=== PATIENT | male | born 2000 | race Two or more races ===

== ENCOUNTER 2024-06-27 18:50 | Emergency (ER) | payer OTHER, MEDICAID ==
[~2024-06-27] VITALS: Ht 177.8 cm; Wt 88.2 kg
[2024-06-27] MEDS: SODIUM CHLORIDE 0.9% 1,000 ML IV ONE (19:15)
[2024-06-27 19:54] LABS: Basophils # (auto) 0.2 10 ^3/uL (0-0.2); Basophils % (auto) 1.6 % (0.0-2.0); Eosinophils # (auto) 0.3 10 ^3/uL (0-0.8); Eosinophils % (auto) 2.8 % (0.0-7.0); Hematocrit 44.9 % (41.0-53.0); Hemoglobin 15.9 g/dL (13.5-17.5); Lymphocytes # (auto) 2.9 10 ^3/uL (0.4-5.4); Lymphocytes % (auto) 30.1 % (10.0-50.0); Mean Corpuscular Hgb Conc. 35.4 g/dL (32.0-36.0); Mean Corpuscular Volume 87.7 fL (80.0-100.0); Monocytes # (auto) 0.4 10 ^3/uL (0-1.3); Monocytes % (auto) 4.3 % (0.0-12.0); Neutrophils % (auto) 61.2 % (37.0-80.0); Nucleated Red Blood Cells % 0.2 %; Platelet Count (auto) 326 10^3/uL (140-450); Red Blood Cells 5.12 10^6/uL (4.5-5.90); Red Cell Distribution Width 13.2 % (11.8-14.3); White Blood Cell 9.8 10^3/uL (4.4-10.8)
[2024-06-27 20:01] LABS: Urine Bacteria None Seen /hpf (None Seen)
[2024-06-27 20:16] LABS: Alanine Aminotransferase 19 U/L (7-40); Alkaline Phosphatase 110 U/L (46-116); Anion Gap 10 (5-15); Aspartate Aminotransferase 17 U/L (13-40); BUN/Creatinine Ratio 11.8 (10.0-20.0); Blood Urea Nitrogen 12 mg/dL (9-23); Calcium 9.6 mg/dL (8.7-10.4); Carbon Dioxide 19 mmol/L (20-30); Chloride 112 mmol/L (98-107); Glucose 84 mg/dL (74-106); Lipase 36 U/L (12-53); Potassium 3.8 mmol/L (3.5-5.1); Sodium 141 mmol/L (136-145)
[2024-06-27 20:17] LABS: Albumin 4.9 g/dL (3.2-4.8); Bilirubin, Total 0.5 mg/dL (0.2-1.0); Total Protein 7.7 g/dL (5.7-8.2)
[2024-06-27] MEDS: IOHEXOL 300 MG/ML 100ML BOTTLE IJ ONE (20:18)
[2024-06-27 20:26] LABS: Urine Blood Negative /uL (Negative); Urine Clarity Clear (Clear); Urine Color Yellow (Yellow); Urine Mucus MODERATE (None Seen); Urine Protein, UAD TRACE (Negative); Urine Urobilinogen Normal (Negative); Urine WBC <1 /hpf (0 - 3); Urine pH 5.5 (5.0-9.0)
[2024-06-27 20:28] LABS: Amphetamine Screen, Urine Neg (NEGATIVE)
[2024-06-27 20:30] LABS: Barbiturate Scree,Urine Neg (NEGATIVE); Benzodiazephine Screen, Urine Neg (NEGATIVE); Cannabinoid Screen, Urine Neg (NEGATIVE); Cocaine Screen, Urine Neg (NEGATIVE); Opiate Scree,Urine Neg (NEGATIVE); Phencyclidine Screen, Urine Neg (NEGATIVE)
[2024-06-27 21:59] VITALS: BP 115/75; PULSE 59; RESP 14; TEMP 98.7; O2SAT 98
[2024-06-27] MEDS: KETOROLAC TROMETH 30 MG/ML 1ML VIAL IV ONE (22:09)
[2024-06-27] MEDS: HYDROcodone-ACET 5/325MG TAB PO ONE (22:09)
== END 2024-06-27 22:05 | disposition home or self-care (01) ==
LOC: ER 18:50
DX: R16.1 Splenomegaly, not elsewhere classified (principal); R59.1 Generalized enlarged lymph nodes; R10.31 Right lower quadrant pain; Z79.899 Other long term (current) drug therapy
CPT/HCPCS: 36415; 74176; 80053; 80307; 81001; 83605; 83690; 84484; 85025